=== PATIENT | female | born 1930 | race Caucasian/White ===

== ENCOUNTER 2017-01-25 05:05 | Inpatient (IN) | payer MEDICARE, OTHER ==
[~2017-01-25] VITALS: Ht 154.9 cm; Wt 54.6 kg
--- NOTE | ~2017-01-25 | OR ---
PATIENT'S NAME: DIANNE PAEZ [facility] AGE: 86 Y [address] ROOM: [place] [address] [place] [facility] [place] DATE: 01/25/2017 OR/Procedure Report DISCHARGE DATE: FAMILY PHYSICIAN: Dayron Law MD ATTENDING PHYSICIAN: Jah Hernandez V SURGEON: Jah Hernandez MD SENIOR SQL DATABASE DEVELOPER: Mikey Rdz MD DATE OF PROCEDURE: 01/25/2017 PREOPERATIVE DIAGNOSIS: T2 N0 recurrent squamous cell carcinoma, right lower lip. POSTOPERATIVE DIAGNOSIS: T2 N0 recurrent squamous cell carcinoma, right lower lip. OPERATION/PROCEDURE: 1. Excision of 5 x 3 cm squamous cell carcinoma of the right lower lip, full thickness. 2. Angelito fan flap reconstruction, greater than 20 cm. 3. Bilateral suprahyoid modified radical neck dissection. ANESTHESIA: General nasotracheal anesthesia. ESTIMATED BLOOD LOSS: 100 mL. COMPLICATIONS: None. DRAINS: One 15-S[place] Hemovac drain. DESCRIPTION OF PROCEDURE: The patient was taken to the operating room and laid in a supine position and underwent general nasotracheal anesthesia. Thomas catheter was placed, shoulder roll was placed, and the head was placed in a sniffing position. The proposed lower lip fan flap margins were infiltrated with 1% lidocaine with epinephrine solution as was the skin in anterior neck. The patient received 2 g of IV Ancef. The patient's face and neck were prepped and draped in the usual sterile fashion using Betadine solution. The tumor extended to the oral commissure. Subsequently, a full- thickness incision was performed through the oral commissure extending vertically down into the chin through the intraoral mucosa. The labial artery as well as angular artery were clamped and suture ligated using 2-0 silk suture. Attention was turned medial. A full-thickness incision through the lip past the midline 1 cm medial to the physical margin was performed, carried into the buccal gingival sulcus extending down into the chin. Skin incision was performed along the chin crease horizontally connecting 2 vertical incisions. Full-thickness fat and subcutaneous tissue incision was performed PATIENT'S NAME: DIANNE PAEZ [facility] AGE: 86 Y [address] ROOM: [place] [address] [place] [facility] [place] DATE: 01/25/2017 OR/Procedure Report DISCHARGE DATE: FAMILY PHYSICIAN: Dayron Law MD ATTENDING PHYSICIAN: Jah Hernandez V extending into the buccal gingival sulcus. Specimen was marked and sent for frozen section pathology. Hemostasis was obtained using Bovie electrocautery. Attention was then turned to the neck. An apron flap neck incision was then performed, extending across the cricoid from the angle of the mandible on the right to the left. The subcutaneous tissues and platysma were divided using #15 blade. Subplatysmal flap was elevated to the lower margin of the mandible. Right neck was approached. Subcutaneous tissue was divided in the midline, extended off of the geniohyoid muscle, dissected off the mylohyoid muscle. Mylohyoid muscle was reflected medially. The submandibular duct was clamped and suture ligated using 2-0 silk sutures. The subcutaneous tissues were divided along the lower margin of the mandible to the facial artery and vein. These were clamped and suture ligated using 2-0 silk suture. The submandibular content was reflected inferiorly. Lingual nerve was identified. Submandibular vein was clamped, and gland was reflected inferiorly. Subcutaneous tissue was divided using Harmonic scalpel extending along the posterior belly of the digastric. The posterior facial artery was clamped and suture ligated with 2-0 silk suture. Digastric was followed posteriorly to the internal jugular vein. Dissection was then performed along the anterior border of the sternocleidomastoid muscle. This was extended to its posterior margin. The jugular vein was identified. Subcutaneous tissues were from the anterior aspect of the jugular vein and divided using Harmonic scalpel. This was followed superiorly up to the posterior belly of the digastric. Level 3 cervical contents were then reflected posteriorly to the posterior margin of the sternocleidomastoid muscle. Subcutaneous tissue was divided using Harmonic scalpel. This was followed superiorly. Accessory nerve was identified. This was followed up to the juncture of the jugular vein and the posterior belly of the digastric. This was divided using Harmonic scalpel, and right suprahyoid neck dissection was sent for permanent pathology. Hemostasis was noted to be adequate. A similar procedure was performed on the left as was on the right reflecting the marginal mandibular nerve on the left anteriorly. A drain was placed through a separate inferior stab incision on the right and secured using 2-0 silk suture. Platysma was reapproximated using interrupted 3-0 Vicryl suture. Skin closure was performed with chano. Frozen section pathology revealed lower lip surgical margins to be free of disease. Modified Angelito fan flap was marked. Skin incision was performed with #15 blade. Subcutaneous tissue was divided using #15 blade, carried into the buccal intraoral mucosa. The full-thickness flap was then rotated to the lower lip. Orbicularis tomasz and the oral commissure were approximated using. The buccal mucosa was approximated using interrupted 4-0 chromic sutures extending vertically up along the lip to the lower lip. A Z-plasty was performed of the lower lip closing the mucosa with interrupted 4-0 chromic sutures. Orbicularis auris and oral commissure were approximated with 3-0 Vicryl suture. Subcutaneous tissue was approximated with interrupted 3-0 PATIENT'S NAME: DIANNE PAEZ [facility] AGE: 86 Y [address] ROOM: [place] [address] LOCATION: [facility] [place]MIT DATE: 01/25/2017 OR/Procedure Report DISCHARGE DATE: FAMILY PHYSICIAN: Dayron Law MD ATTENDING PHYSICIAN: Jah Hernandez V Vicryl suture. Burow's triangles were removed along the superior aspect of the flap as well as inferiorly extending down over the chin. Remainder of the subcutaneous tissue was approximated with interrupted 5-0 Vicryl suture. Skin closure was performed using running interlocking 6-0 Ethilon. The patient tolerated the procedure well. Neosporin ointment was applied to the neck as well as the lip and right cheek incisions. The patient was extubated, aroused, and discharged from the operating room to the recovery room in satisfactory condition. JAH HERNANDEZ MD TVC/modl /[id number] CC: MD Al Delaney MD d: 01/25/17 1958 t: 01/29/17 0731, OPERATIVE SUMMARY
--- NOTE | ~2017-01-25 | DS ---
PATIENT'S NAME: DIANNE PAEZ [facility] AGE: 86 Y [address] ROOM: [place] [address] LOCATION: [facility] [place] ADMIT DATE: 01/25/2017 Discharge Summary DISCHARGE DATE: 01/27/2017 FAMILY PHYSICIAN: Dayron Law MD ATTENDING PHYSICIAN: Jah Hernandez V HISTORY OF PRESENT ILLNESS: She has history of squamous cell carcinoma, right lower lip. This has been now present for approximately 1 year according to the patient, 2 years according to . She has been treated numerous times via cryotherapy with no improvement. The patient was subsequently referred to Dr. Hernandez at which time, a further wide local excision, modified radical neck dissection was recommended. SERVICE: ENT. CONSULTATIONS: None. PROCEDURE: On 01/25/2017, the patient underwent excision of 5 x 3 cm squamous cell carcinoma of right lower lip, full-thickness with Angelito fan flap recon greater than 20 cm. Additionally, the patient underwent bilateral suprahyoid modified radical neck dissection. Findings are consistent with T2 N0 recurrent squamous cell carcinoma of the right lower lip. HOSPITAL COURSE: After uncomplicated procedure, the patient was transferred to the floor for observation. The drain was in place. She slowly advanced her diet. Drain was removed on postop day 2. Ambulated well without difficulty. Did have some numbness over the right lower lip, as expected. DISCHARGE CONDITION: Stable. DISPOSITION: Home. DISCHARGE ORDERS: 1. Clean incision half peroxide and half water followed by Neosporin ointment twice daily x3 days, then apply Vaseline. 2. Peridex 15 mL swish and spit t.i.d. 3. Follow up next Sunday with Dr. Jah Hernandez for further evaluation. COLLEEN CUMMINGS FOR MD KD VALENZUELA/modl PATIENT'S NAME: DIANNE PAEZ [facility] AGE: 86 Y [address] ROOM: [place] [address] LOCATION: [facility] [place] ADMIT DATE: 01/25/2017 Discharge Summary DISCHARGE DATE: 01/27/2017 FAMILY PHYSICIAN: Dayron Law MD ATTENDING PHYSICIAN: Jah Hernandez V /[id number] d: t: 02/12/17 1209, DISCHARGE SUMMARY
[~2017-01-25 05:05] MED LIST: ASPIRIN LO-DOSE81 MG PO; BISOPROLOL-HCT1 EAC2 PO; MULTI-DAY VITA1 EACH PO; NORVASC10 MG PO
--- NOTE | 2017-01-25 17:35 | NUR ---
Significant Event: Sutures to face/neck/mouth are intact, scant serous drainage noted along neck suture line. Hemavac draining bloody fluid, had 70 ml out. Denies need for pain medication. Thomas draining clear yellow urine Taking soft foods and clear liquids carefully but without difficulty. Vitals stable. Face mask with 30% O2 running, SaO2 92-100%. Lungs are clear/diminished. Last hourly vitals will be at 1845. Daughter at bedside. Follow up:Monitor pains and drainage.
--- NOTE | 2017-01-26 04:40 | NUR ---
Pt. alert and oriented. VSS. RA. Admitted to floor after post surgery for excision of squamous carcinoma. Sutures on face and neck with hemovac drain on neck. Hemovac drain every 8 hours with 45ml out this shift. 1/2 strength hydrogen peroxide and neosporin to sutures. L) forearm IV with IVF 125ml/hour. Has not gotten up yet. Thomas patent with 450ml output. Pneumatic devices on. Pt has high pain tolerance but did give 1 norco at HS for relaxation. Takes sips of water out of cup. Takes pills whole. Clear diet. Pleasant and cooperative with cares.
--- NOTE | 2017-01-26 13:00 | NUR ---
SPOKE TO PATIENT AND HER FAMILY AT THE BEDSIDE. PATIENT LIVES IN OWN HOME SHE HAS SEVERAL FAMILY MEMBERS AT THE BEDSIDE. SHE IS PLANNING ON GOING HOME TOMORROW WITH HELP FROM FAMILY. PATIENT DOES NOT ANTICIPATE ANY DISCHARGE NEEDS AT THIS TIME. WILL FOLLOW NEEDED.
--- NOTE | 2017-01-26 14:39 | NUR ---
Significant Event: Patient alert and oriented. Up with 1 assist. Thomas removed this morning and patient has voided x2. IV saline locked. Hemavac had 80ml out for this shift. Hemavac located in neck area. Incision to chin and cheek is bruised and swollen with sutures. Incision to neck has chano. Follow up: No problems with swallowing. Tolerating Soft diet. Suture kit at bedside. MD will probably remove Hemavac tomorrow.
--- NOTE | 2017-01-27 05:07 | NUR ---
Pt. alert and oriented. 1A. RA. VSS. Saline locked. IV L) Foremarm. Hemovac on neck with 30ml output for this shift. Bottom half of face and neck is swollen. 1/2 strength sterile water with hydrogen peroxide and neosporin every 8 hours. Sutures to be removed today. Kit at bedside for MD. Tolderating soft diet. Hemovac possibly removed today. Pt has high pain tolerance. 1 norco given at HS. Pleasant and cooperative with cares.
[2017-01-27] MEDS ORDERED: HYDROGEN PEROXID1 ML TOP (17:15)
[2017-01-27] MEDS ORDERED: NEOSPORIN ANT14.2 GM TOP (17:16)
[2017-01-27] MEDS ORDERED: PERIDEX15 ML PO (17:18)
--- NOTE | 2017-01-27 19:03 | NUR ---
Significant Event: A&O. VSS, AFEBRILE, SATS 88-90 ON ROOM AIR, REINFORCED TCDB, AMBULATE, MONITOR AIRWAY SWELLING, REPORT SHORTNESS OF BREATH. IV REMOVED. DISCHARGE INSTRUCTIONS DISCUSSED WITH PATIENT AND FAMILY, VERBALIZED UNDERSTANDING. WOUND CLEANSING SUPPLIES SENT WITH PATIENT. ESCORTED TO VEHICLE. Follow up:
== END 2017-01-27 18:00 | disposition disaster alternative care site (69) | DRG 578 ==
LOC: GMSU 05:05 → GSDC 05:05 → GPOC 07:00 → GMSU 13:15 → GSDC 13:16 → GMSU 01-26 05:05 → GSDC 01-26 05:05 → GMSU 01-27 18:00
PROVIDERS: ADMIT Otolaryngology
PROC: 0CB10ZZ Excision of Lower Lip, Open Approach (ICD-10-PCS; principal; 2017-01-25)
PROC: 07T20ZZ Resection of Left Neck Lymphatic, Open Approach (ICD-10-PCS; principal; 2017-01-25)
PROC: 07T10ZZ Resection of Right Neck Lymphatic, Open Approach (ICD-10-PCS; principal; 2017-01-25)
PROC: 0JX Subcutaneous Tissue and Fascia, Transfer (ICD-10-PCS; principal; 2017-01-25)
DX: C44.02 Squamous cell carcinoma of skin of lip (principal); I73.9 Peripheral vascular disease, unspecified; I10 Essential (primary) hypertension; R59.0 Localized enlarged lymph nodes; Z79.82 Long term (current) use of aspirin
CPT/HCPCS: J0690; J1100; J2250; J2405; J3480; J7120